=== PATIENT | female | born 1950 | race Caucasian/White ===

== ENCOUNTER 2016-06-22 13:17 | Emergency (ER) | payer MEDICARE, OTHER ==
[~2016-06-22] VITALS: Ht 152.4 cm; Wt 53.0 kg
[2016-06-22 13:33] VITALS: Ht 152.4 cm; Wt 53.0 kg
[2016-06-22 15:15] LABS: URINE BLOOD (Dip) POC 1+ (NEGATIVE)
--- NOTE | 2016-06-22 15:58 | RADRPT ---
PROCEDURE: CT Brain without. CLINICAL INDICATION: Headache. TECHNIQUE: A CT of the brain was performed on multidetector high-resolution CT scanner utilizing a xial sections from the skull base through the vertex without contrast. The scan was reviewed in sof t tissue brain and high frequency resolution bone algorithm windows. Images were reviewed on a high -resolution PACS workstation. One or more the following does reduction techniques were utilized: Aut omated exposure control, adjustment of the mA/ or kV according to patient's size, or use of iterativ e reconstruction technique. The exam CTDI = 44.46 mGy and the DLP = 630.2 mGy-cm. COMPARISON: None available. FINDINGS: The ventricles and sulci are mildly prominent indicative of volume loss. There is no intracranial he morrhage, mass effect or midline shift. No abnormal intra-axial or extra-axial fluid collections ar e seen. The maciel/white matter differentiation is preserved. There is 3 mm round calcification in the left lateral aspect of the fourth ventricle. There are mild scattered foci of hypoattenuation in the white matter, which are nonspecific in etiol ogy but likely reflect chronic small vessel ischemic changes. There are mild intracranial vascular calcifications consistent with atherosclerosis. The visualized paranasal sinuses are essentially barbara ar. Several partially calcified left parietal scalp nodules are noted which may represent sebaceous cysts. IMPRESSION: 1. No acute intracranial hemorrhage, transcortical infarction or mass effect. 2. 3 mm round calcification in the left lateral aspect of the fourth ventricle. Follow-up brain MRI with contrast can be obtained for further evaluation. 3. Mild intracranial atherosclerosis and chronic small vessel ischemic changes. 4. Mild generalized cerebral volume loss. RPTAT: HH .Federico Douglas MD, MD Date Time Electronically viewed and signed by .Federico Douglas MD, MD on 06/22/2016 15:58 .N/
[2016-06-22] MEDS ORDERED: HYD25 PO (16:13)
[2016-06-22] MEDS ORDERED: ACET500C5 PO (16:13)
--- NOTE | 2016-06-22 16:17 | ERD ---
ER Documentation Chief Complaint Date/Time DATE: 06/22/16 TIME: 16:15 Chief Complaint headache and dizziness x 5 days HPI This 65-year-old female complains of a left posterior headache for last 5 days. She denies any history of trauma, visual changes or vomiting. She denies any inciting events. She may have pain at the base of her skull in her neck as well. Patient is concerned about her blood pressure as well. She is to take her blood pressure medicine but was able to afford it has not been on it for several months. It is acceptable in triage today but she states that it is been elevated at her mental health provider over the last few visits and is requesting medications. Patient denies any recent illnesses, chest pain, shortness breath, weakness. ROS All systems reviewed and are negative except as per history of present illness. Medications Home Meds Active Scripts Hydrochlorothiazide* (Hydrochlorothiazide*) 25 Mg Tab, 25 MG PO DAILY, #30 TAB Prov:RIAN GALINDO MD 06/22/16 Acetaminophen* (Tylophen*) 500 Mg Capsule, 1 CAP PO Q6H Y for PAIN AND OR ELEVATED TEMP, #20 CAP Prov:RIAN GALINDO MD 06/22/16 PMhx/Soc Medical and Surgical Hx: pt denies Medical Hx, pt denies Surgical Hx Hx Alcohol Use: No Hx Substance Use: No Hx Tobacco Use: No Smoking Status: Never smoker Physical Exam Vitals Vital Signs Date Time Temp Pulse Resp B/P Pulse Ox O2 Delivery O2 Flow Rate FiO2 06/22/16 13:33 98.3 89 18 139/67 98 Physical Exam Const: [] Alert, [id number] per Head: Atraumatic Eyes: Normal Conjunctiva ENT: Normal External Ears, Nose and Mouth. Neck: Full range of motion..~ No meningismus. Mild tenderness to the base of the neck on the left occipital area. No step-offs or deformities. No mastoid tenderness. Resp: Clear to auscultation bilaterally Cardio: Regular rate and rhythm, no murmurs Abd: Soft, non tender, non distended. Normal bowel sounds Skin: No petechiae or rashes Back: No midline or flank tenderness Ext: No cyanosis, or edema Neur: Awake and alert Psych: Normal Mood and Affect Results 24 hrs Laboratory Tests Test 5/11/17 15:17 Bedside Urine pH (LAB) 5.5 Bedside Urine Protein (LAB) Trace Bedside Urine Glucose (UA) Negative Bedside Urine Ketones (LAB) Negative Bedside Urine Blood 1+ Bedside Urine Nitrite (LAB) Negative Bedside Urine Leukocyte Esterase (L Negative Procedures/MDM Given the uncertain cause of headache a CT brain was performed which shows no calcified lesion in the lateral fourth ventricle but no acute findings of bleeding, mass-effect, Urine is negative for leukocytes, glucose nitrites. There is trace hemoglobin. Patient has a headache of uncertain etiology associated with a history of high blood pressure. No signs or symptoms of bleeding, acute neurologic deficit , meningitis or endorgan damage. Patient will be given prescription for hydrochlorothiazide by request and instructions to follow-up with primary doctor. Patient was referred to local [facility] as she states she does not have a primary care provider. She should return for chest pain, shortness breath, new worsening symptoms with primary care doctor as directed. The patient was stable with no new complaints during the ER course. Clinically, there is no current evidence to suggest meningitis, sepsis, acute abdomen, pneumonia, acute coronary syndrome, pulmonary embolism, or any other emergent condition appearing to require further evaluation or hospitalization. The patient should certainly return for any new or worsening symptoms per the aftercare instructions. They should otherwise follow-up with her primary care doctor for reevaluation this week. Departure Diagnosis: Primary Impression: Hypertension Hypertension type: essential hypertension Qualified Code: I10 - Essential hypertension Additional Impression: Headache Headache type: unspecified Headache chronicity pattern: unspecified pattern Intractability: not intractable Qualified Code: R51 - Nonintractable headache, unspecified chronicity pattern, unspecified headache type Condition: Stable Patient Instructions: Headache, Unspecified, Hypertension, New (Begin Treatment ) Referrals: [facility] YOU HAVE RECEIVED A MEDICAL SCREENING EXAM AND THE RESULTS INDICATE THAT YOU DO NOT HAVE A CONDITION THAT REQUIRES URGENT TREATMENT IN THE EMERGENCY DEPARTMENT. FURTHER EVALUATION AND TREATMENT OF YOUR CONDITION CAN WAIT UNTIL YOU ARE SEEN IN YOUR DOCTORS OFFICE WITHIN THE NEXT 1-2 DAYS. IT IS YOUR RESPONSIBILITY TO MAKE AN APPOINTMENT FOR FOLOW-UP CARE. IF YOU HAVE A PRIMARY DOCTOR --you should call your primary doctor and schedule an appointment IF YOU DO NOT HAVE A PRIMARY DOCTOR YOU CAN CALL OUR PHYSICIAN REFERRAL HOTLINE AT IF YOU CAN NOT AFFORD TO SEE A PHYSICIAN YOU CAN CHOSE FROM THE FOLLOWING COMMUNITY CLINICS [facility] [address] [facility] [address] [facility] [address] [facility] [address] [facility] [address] [facility]. [facility] [address] Additional Instructions: CT shows no acute findings. There is a calcified lesion which appears old which can be followed up by primary doctor for further evaluation and follow- up. We will initiate medication for blood pressure. See primary doctor for primary care. Return otherwise for fevers, vomiting, chest pain, shortness breath, new symptoms. RIAN GALINDO MD June 22, 2016 16:17
== END 2016-06-22 16:37 | disposition home or self-care (01) ==
LOC: FTE 13:17
DX: I10 Essential (primary) hypertension (principal)
CPT/HCPCS: 70450; 81003